=== PATIENT | female | born 1945 | race Caucasian/White ===

== ENCOUNTER 2018-03-15 03:35 | Inpatient (IN) | payer MEDICARE ==
[~2018-03-15] VITALS: Ht 152.4 cm; Wt 76.8 kg
--- NOTE | ~2018-03-15 | MORECARE ---
CASE MANAGEMENT DISCHARGE SUMMARY PATIENT: GIULIA NICHOLS UNIT: [id number] ADM DATE: 03/15/18 AGE: 72 : 44 SEX: F ROOM/BED: D.6413 AUTHOR: ABI GR PHYSICIAN: REFERRING PHYSICIAN: COURTNEY FOX MD DATE OF SERVICE: 03/19/18 Discharge Plan Patient Name: GIULIA NICHOLS Facility: [facility]:[place] : 1945 Planned Disposition: Home Anticipated Discharge Date: 03/19/18 Discharge Date: 03/19/2018 Expected LOS: 4 Initial Reviewer: [id number] Initial Review Date: 03/16/2018 Generated: 03/19/18 8:34 pm Comments DCP- Discharge Planning Updated by [id number]: Michael Marin on 03/16/18 3:[address] Patient Name: GIULIA NICHOLS Admission Status: ER Accout number: [id number] Admission Date: 03-15-2018 : 1945 Admission Diagnosis: Attending: COURTNEY FOX Current LOS: 1 Anticipated DC Date: Planned Disposition: Home Primary Insurance: MEDICARE A & B Discharge Planning Comments: CM SPOKE TO DR. FOX WHO INFORMED CM THAT PT AND SPOUSE ARE LOOKING FOR [employer] WORK IN HOSPITAL. CM MET WITH PT, SPOUSE AND DAUGHTER IN ROOM TO DISCUSS DISCHARGE PLANNING AND NEEDS. GIULIA NICHOLS provided verbal consent to discuss current and ongoing needs with/in the presence of: SPOUSE AND DAUGHTER (VEDA). PT REPORTS LIVING AT HOME DEPENDENTLY WITH SPOUSE WHO ASSISTS PT WITH BATHING AND MEDICATIONS. PT HAS ROLLATOR WALKER, BEDSIDE COMMODE, SHOWER CHAIR FROM [facility]. PT DID HAVE OXYGEN BUT IT WAS PICKED UP THREE WEEKS AGO AFTER DOCTOR VISIT INDICATED PT NO LONGER QUALIFIED FOR HOME OXYGEN. PT H NO OUTSIDE SERVICES ASSISTING IN THE HOME. PT'S DUAGHTER REPORTS BEING AVAILBLE TO PT TO ASSIST IN THE HOME NEEDED. CM DISCUSSED AVAILABILITY OF HOME HEALTH, REHAB SERVICES AND MEDICAL EQUIPMENT. PT DENIES DISCHARGE NEEDS, PT'S SPOUSE REPORTS THEY WERE EVALUATED BY HOME HEALTH AND PT IS NOT HOME BOUND AND NOT HAVING TAXING EFFORT TO LEAVE THE HOME. PT REPORTS HER DAUGHTER OR SPOUSE WILL PICK HER UP FOR DISCHARGE HOME. PT'S SPOUSE HAS TALKED TO [employer] WHO WILL PROVIDE A NOTARY WHEN HE CALLS THEM. PT AND SPOUSE DENY NEEDS AT THIS TIME. PT PLANS TO DISCHARGE HOME WITH SPOUSE, DENIES NEEDS AT THIS TIME. CM TO FOLLOW AND ASSIST NEEDED. Cosmetologist Apprentice: Michael Marin DCPIA - Discharge Planning Initial Assessment Updated by [id number]: Michael Marin on 03/16/18 4:40 pm * Is the patient Alert and Oriented? Yes * How many steps to enter\exit or inside your home? * PCP DR. CONRADO JOHNSON IN [place] * Pharmacy [address] IN [place] * Preadmission Environment Home with Family * ADLs Partial Dependent * Partial ADLs (Assistance needed) Bathing Medication Management * Equipment Bedside Commode Other Shower Chair * Other Equipment NO MEDICAL EQUIPMENT PROVIDER PREFERENCE * List name and contact numbers for known caregivers / representatives who currently or will assist patient after discharge: VEDA JACOB, DAUGHTER, * Verbal permission to speak to the caregivers and representatives has been obtained from the patient. Yes * Community resources currently utilized None * Please name any agencies selected above. NONE * Additional services required to return to the preadmission environment? No * Can the patient safely return to the preadmission environment? Yes * Has this patient been hospitalized within the prior 30 days at any hospital? No Coverage Notice Reviewer: [id number] Piter Cat Notice Issued Date-Time: 03/19/2018 15:45 Notice Type: IM Discharge Notice Notice Delivered To: Patient Relationship to Patient: Lead Assembler Name: Delivery Method: - Tyesha Days: Prior Verbal Notification: Recipient Understood Notice: Recipient Signature: Med Rec Note Co-signed by Attending: Coverage Notice Comment: Last DP export: 03/16/18 3:46 p Patient Name: GIULIA NICHOLS Page [id number] at 1934 All edits/amendments must be made on the electronic document DICTATION DATE: 03/19/181933 TREAD BUILDER: SNEHA 03/19/181933 RPT#: [id number] DC DATE:03/19/18 STATUS: DIS IN [facility] [address] [facility] [place] [address] END OF REPORT
--- NOTE | ~2018-03-15 | MORECARE ---
CASE MANAGEMENT DISCHARGE SUMMARY PATIENT: GIULIA NICHOLS UNIT: [id number] ADM DATE: 03/15/18 AGE: 72 : 44 SEX: F ROOM/BED: D.0538 AUTHOR: ABI GR PHYSICIAN: REFERRING PHYSICIAN: COURTNEY FOX MD DATE OF SERVICE: 03/16/18 Discharge Plan Patient Name: GIULIA NICHOLS Facility: [facility]:[place] : 1945 Planned Disposition: Home Anticipated Discharge Date: Discharge Date: Expected LOS: Initial Reviewer: [id number] Initial Review Date: 03/16/2018 Generated: 03/16/18 5:46 pm Comments DCP- Discharge Planning Updated by [id number]: Michael Marin on 03/16/18 3:[address] Patient Name: GIULIA NICHOLS Admission Status: ER Accout number: [id number] Admission Date: 03-15-2018 : 1945 Admission Diagnosis: Attending: COURTNEY FOX Current LOS: 1 Anticipated DC Date: Planned Disposition: Home Primary Insurance: MEDICARE A & B Discharge Planning Comments: CM SPOKE TO DR. FOX WHO INFORMED CM THAT PT AND SPOUSE ARE LOOKING FOR [employer] WORK IN HOSPITAL. CM MET WITH PT, SPOUSE AND DAUGHTER IN ROOM TO DISCUSS DISCHARGE PLANNING AND NEEDS. GIULIA NICHOLS provided verbal consent to discuss current and ongoing needs with/in the presence of: SPOUSE AND DAUGHTER (VEDA). PT REPORTS LIVING AT HOME DEPENDENTLY WITH SPOUSE WHO ASSISTS PT WITH BATHING AND MEDICATIONS. PT HAS ROLLATOR WALKER, BEDSIDE COMMODE, SHOWER CHAIR FROM [facility]. PT DID HAVE OXYGEN BUT IT WAS PICKED UP THREE WEEKS AGO AFTER DOCTOR VISIT INDICATED PT NO LONGER QUALIFIED FOR HOME OXYGEN. PT H NO OUTSIDE SERVICES ASSISTING IN THE HOME. PT'S DUAGHTER REPORTS BEING AVAILBLE TO PT TO ASSIST IN THE HOME NEEDED. CM DISCUSSED AVAILABILITY OF HOME HEALTH, REHAB SERVICES AND MEDICAL EQUIPMENT. PT DENIES DISCHARGE NEEDS, PT'S SPOUSE REPORTS THEY WERE EVALUATED BY HOME HEALTH AND PT IS NOT HOME BOUND AND NOT HAVING TAXING EFFORT TO LEAVE THE HOME. PT REPORTS HER DAUGHTER OR SPOUSE WILL PICK HER UP FOR DISCHARGE HOME. PT'S SPOUSE HAS TALKED TO [employer] WHO WILL PROVIDE A NOTARY WHEN HE CALLS THEM. PT AND SPOUSE DENY NEEDS AT THIS TIME. PT PLANS TO DISCHARGE HOME WITH SPOUSE, DENIES NEEDS AT THIS TIME. CM TO FOLLOW AND ASSIST NEEDED. Customer Care Agent: Michael Marin DCPIA - Discharge Planning Initial Assessment Updated by [id number]: Michael Marin on 03/16/18 4:40 pm * Is the patient Alert and Oriented? Yes * How many steps to enter\exit or inside your home? * PCP DR. CONRADO JOHNSON IN [place] * Pharmacy [facility] [address] IN [place] * Preadmission Environment Home with Family * ADLs Partial Dependent * Partial ADLs (Assistance needed) Bathing Medication Management * Equipment Bedside Commode Other Shower Chair * Other Equipment NO MEDICAL EQUIPMENT PROVIDER PREFERENCE * List name and contact numbers for known caregivers / representatives who currently or will assist patient after discharge: VEDA JACOB, DAUGHTER, * Verbal permission to speak to the caregivers and representatives has been obtained from the patient. Yes * Community resources currently utilized None * Please name any agencies selected above. NONE * Additional services required to return to the preadmission environment? No * Can the patient safely return to the preadmission environment? Yes * Has this patient been hospitalized within the prior 30 days at any hospital? No Patient Name: GIULIA NICHOLS Page [id number] at 1646 All edits/amendments must be made on the electronic document DICTATION DATE: 03/16/181645 LICENSED NURSE PRACTITIONER: SNEHA 03/16/181645 RPT#: [id number] [place] DATE: STATUS: ADM IN [facility] [address] [place] [address] END OF REPORT
--- NOTE | ~2018-03-15 | MORECARE ---
CASE MANAGEMENT DISCHARGE SUMMARY PATIENT: GIULIA NICHOLS UNIT: [id number] ADM DATE: 03/15/18 AGE: 72 : 44 SEX: F ROOM/BED: D.7775 AUTHOR: MAILE,DOC PHYSICIAN: REFERRING PHYSICIAN: COURTNEY FOX MD DATE OF SERVICE: 03/19/18 Discharge Plan Patient Name: GIULIA NICHOLS Facility: [facility]:[place] : 1945 Planned Disposition: Home Anticipated Discharge Date: 03/19/18 Discharge Date: 03/19/2018 Expected LOS: 4 Initial Reviewer: [id number] Initial Review Date: 03/16/2018 Generated: 03/19/18 8:41 pm Comments DCP- Discharge Planning Updated by [id number]: Lor Cat on 03/19/18 6:[address] LATE ENTRY 1525 PATIENT ANXIOUS FOR DISCHARGE. SPOUSE WAS AT THE BEDSIDE. HE IS PROVIDING TRANSPORTATION. HE LEFT TO GO GET THE CAR. CM DISCUSSED DISCHARGE IMM WITH THE PATIENT. PATIENT HAD NO QUESTIONS. OR CONCERNS. DENIED ANY NEEDS. DISCHARGE TO HOME W/ SPOUSE. DCP- Discharge Planning Updated by [id number]: Michael Marin on 03/16/18 3:[address] Patient Name: GIULIA NICHOLS Admission Status: ER Accout number: [id number] Admission Date: 03-15-2018 : 1945 Admission Diagnosis: Attending: COURTNEY FOX Current LOS: 1 Anticipated DC Date: Planned Disposition: Home Primary Insurance: MEDICARE A & B Discharge Planning Comments: CM SPOKE TO DR. FOX WHO INFORMED CM THAT PT AND SPOUSE ARE LOOKING FOR [employer] WORK IN HOSPITAL. CM MET WITH PT, SPOUSE AND DAUGHTER IN ROOM TO DISCUSS DISCHARGE PLANNING AND NEEDS. GIULIA NICHOLS provided verbal consent to discuss current and ongoing needs with/in the presence of: SPOUSE AND DAUGHTER (VEDA). PT REPORTS LIVING AT HOME DEPENDENTLY WITH SPOUSE WHO ASSISTS PT WITH BATHING AND MEDICATIONS. PT HAS ROLLATOR WALKER, BEDSIDE COMMODE, SHOWER CHAIR FROM [facility]. PT DID HAVE OXYGEN BUT IT WAS PICKED UP THREE WEEKS AGO AFTER DOCTOR VISIT INDICATED PT NO LONGER QUALIFIED FOR HOME OXYGEN. PT H NO OUTSIDE SERVICES ASSISTING IN THE HOME. PT'S DAVID REPORTS BEING AVAILBLE TO PT TO ASSIST IN THE HOME NEEDED. CM DISCUSSED AVAILABILITY OF HOME HEALTH, REHAB SERVICES AND MEDICAL EQUIPMENT. PT DENIES DISCHARGE NEEDS, PT'S SPOUSE REPORTS THEY WERE EVALUATED BY HOME HEALTH AND PT IS NOT HOME BOUND AND NOT HAVING TAXING EFFORT TO LEAVE THE HOME. PT REPORTS HER DAUGHTER OR SPOUSE WILL PICK HER UP FOR DISCHARGE HOME. PT'S SPOUSE HAS TALKED TO [employer] WHO WILL PROVIDE A NOTARY WHEN HE CALLS THEM. PT AND SPOUSE DENY NEEDS AT THIS TIME. PT PLANS TO DISCHARGE HOME WITH SPOUSE, DENIES NEEDS AT THIS TIME. CM TO FOLLOW AND ASSIST NEEDED. Greenstone Polisher Operator: Michael Marin DCPIA - Discharge Planning Initial Assessment Updated by [email or web address]: Michael Marin on 03/16/18 4:40 pm * Is the patient Alert and Oriented? Yes * How many steps to enter\exit or inside your home? * PCP DR. CONRADO JOHNSON IN [place] * Pharmacy [address] IN [place] * Preadmission Environment Home with Family * ADLs Partial Dependent * Partial ADLs (Assistance needed) Bathing Medication Management * Equipment Bedside Commode Other Shower Chair * Other Equipment NO MEDICAL EQUIPMENT PROVIDER PREFERENCE * List name and contact numbers for known caregivers / representatives who currently or will assist patient after discharge: VEDA JACOB, DAUGHTER, * Verbal permission to speak to the caregivers and representatives has been obtained from the patient. Yes * Community resources currently utilized None * Please name any agencies selected above. NONE * Additional services required to return to the preadmission environment? No * Can the patient safely return to the preadmission environment? Yes * Has this patient been hospitalized within the prior 30 days at any hospital? No Coverage Notice Reviewer: [id number] Piter Cat Notice Issued Date-Time: 03/19/2018 15:45 Notice Type: IM Discharge Notice Notice Delivered To: Patient Relationship to Patient: Water Plumber Name: Delivery Method: HAND - Hand Delivered Tyesha Days: Prior Verbal Notification: Recipient Understood Notice: Yes Recipient Signature: Yes Med Rec Note Co-signed by Attending: Coverage Notice Comment: CM SPOKE WITH THE PATIENT. EXPLAINED DISCHARGE IMM. NO QUESTIONS OR CONCERNS. SIGNATURE OBTAINED. COPY TO THE PATIENT AND COPY TO THE HARD COPY CHART. Last DP export: 03/19/18 6:34 Patient Name: GIULIA NICHOLS Page [phone] at 1941 All edits/amendments must be made on the electronic document DICTATION DATE: 03/19/181940 ROSE GROWER: SNEHA 03/19/181940 RPT#: [id number] DC DATE:03/19/18 STATUS: DIS IN [facility] [address] [place] [address] END OF REPORT
--- NOTE | ~2018-03-15 | MORECARE ---
CASE MANAGEMENT DISCHARGE SUMMARY PATIENT: GIULIA NICHOLS UNIT: [id number] ADM DATE: 03/15/18 AGE: 72 : 44 SEX: F ROOM/BED: D.0527 AUTHOR: MAILE,ABI PHYSICIAN: REFERRING PHYSICIAN: COURTNEY FOX MD DATE OF SERVICE: 03/20/18 Discharge Plan Patient Name: GIULIA NICHOLS Facility: [facility]:[place] : 1945 Planned Disposition: Home Anticipated Discharge Date: 03/19/18 Discharge Date: 03/19/2018 Expected LOS: 4 Initial Reviewer: [id number] Initial Review Date: 03/16/2018 Generated: 03/20/18 10:36 am Comments DCP- Discharge Planning Updated by [id number]: Lor Cat on 03/19/18 6:[address] LATE ENTRY 1525 PATIENT ANXIOUS FOR DISCHARGE. SPOUSE WAS AT THE BEDSIDE. HE IS PROVIDING TRANSPORTATION. HE LEFT TO GO GET THE CAR. CM DISCUSSED DISCHARGE IMM WITH THE PATIENT. PATIENT HAD NO QUESTIONS. OR CONCERNS. DENIED ANY NEEDS. DISCHARGE TO HOME W/ SPOUSE. DCP- Discharge Planning Updated by [id number]: Michael Marin on 03/16/18 3:[address] Patient Name: GIULIA NICHOLS Admission Status: ER Accout number: [id number] Admission Date: 03-15-2018 : 1945 Admission Diagnosis: Attending: COURTNEY FOX Current LOS: 1 Anticipated DC Date: Planned Disposition: Home Primary Insurance: MEDICARE A & B Discharge Planning Comments: CM SPOKE TO DR. FOX WHO INFORMED CM THAT PT AND SPOUSE ARE LOOKING FOR [facility] WORK IN HOSPITAL. CM MET WITH PT, SPOUSE AND DAUGHTER IN ROOM TO DISCUSS DISCHARGE PLANNING AND NEEDS. GIULIA NICHOLS provided verbal consent to discuss current and ongoing needs with/in the presence of: SPOUSE AND DAUGHTER (VEDA). PT REPORTS LIVING AT HOME DEPENDENTLY WITH SPOUSE WHO ASSISTS PT WITH BATHING AND MEDICATIONS. PT HAS ROLLATOR WALKER, BEDSIDE COMMODE, SHOWER CHAIR FROM [facility] [place]. PT DID HAVE OXYGEN BUT IT WAS PICKED UP THREE WEEKS AGO AFTER DOCTOR VISIT INDICATED PT NO LONGER QUALIFIED FOR HOME OXYGEN. PT H NO OUTSIDE SERVICES ASSISTING IN THE HOME. PT'S DAVID REPORTS BEING AVAILBLE TO PT TO ASSIST IN THE HOME NEEDED. CM DISCUSSED AVAILABILITY OF HOME HEALTH, REHAB SERVICES AND MEDICAL EQUIPMENT. PT DENIES DISCHARGE NEEDS, PT'S SPOUSE REPORTS THEY WERE EVALUATED BY HOME HEALTH AND PT IS NOT HOME BOUND AND NOT HAVING TAXING EFFORT TO LEAVE THE HOME. PT REPORTS HER DAUGHTER OR SPOUSE WILL PICK HER UP FOR DISCHARGE HOME. PT'S SPOUSE HAS TALKED TO [employer] WHO WILL PROVIDE A NOTARY WHEN HE CALLS THEM. PT AND SPOUSE DENY NEEDS AT THIS TIME. PT PLANS TO DISCHARGE HOME WITH SPOUSE, DENIES NEEDS AT THIS TIME. CM TO FOLLOW AND ASSIST NEEDED. Air And Missile Defense Crewmember: Michael Marin DCPIA - Discharge Planning Initial Assessment Updated by [id number]: Michael Marin on 03/16/18 4:40 pm * Is the patient Alert and Oriented? Yes * How many steps to enter\exit or inside your home? * PCP DR. CONRADO JOHNSON IN [place] * Pharmacy [address] IN [place] * Preadmission Environment Home with Family * ADLs Partial Dependent * Partial ADLs (Assistance needed) Bathing Medication Management * Equipment Bedside Commode Other Shower Chair * Other Equipment NO MEDICAL EQUIPMENT PROVIDER PREFERENCE * List name and contact numbers for known caregivers / representatives who currently or will assist patient after discharge: VEDA JACOB, DAUGHTER, * Verbal permission to speak to the caregivers and representatives has been obtained from the patient. Yes * Community resources currently utilized None * Please name any agencies selected above. NONE * Additional services required to return to the preadmission environment? No * Can the patient safely return to the preadmission environment? Yes * Has this patient been hospitalized within the prior 30 days at any hospital? No Coverage Notice Reviewer: [id number] Piter Cat Notice Issued Date-Time: 03/19/2018 15:45 Notice Type: IM Discharge Notice Notice Delivered To: Patient Relationship to Patient: Spanish Interpreter/Translator Name: Delivery Method: HAND - Hand Delivered Tyesha Days: Prior Verbal Notification: Recipient Understood Notice: Yes Recipient Signature: Yes Med Rec Note Co-signed by Attending: Coverage Notice Comment: CM SPOKE WITH THE PATIENT. EXPLAINED DISCHARGE IMM. NO QUESTIONS OR CONCERNS. SIGNATURE OBTAINED. COPY TO THE PATIENT AND COPY TO THE HARD COPY CHART. Last DP export: 03/19/18 6:41 Patient Name: GIULIA NICHOLS Page [id number] at 0936 All edits/amendments must be made on the electronic document DICTATION DATE: 03/20/18935 STRUCTURAL STEEL WORKER HELPER: SNEHA 03/20/18935 RPT#: [id number] DC DATE:03/19/18 STATUS: DIS IN [facility] [address] [place] [address] END OF REPORT
[2018-03-15 04:26] VITALS: BP 132/71
[2018-03-15] MEDS ORDERED: XANAX0.25 MG PO (04:48)
[2018-03-15] MEDS ORDERED: COREG6.25 MG PO (04:49)
[2018-03-15] MEDS ORDERED: PHOSLO667 MG PO (04:49)
[2018-03-15] MEDS ORDERED: TESSALON PERLE100 MG PO (04:49)
[2018-03-15] MEDS ORDERED: FERROUS SULFAT325 MG PO (04:50)
[2018-03-15] MEDS ORDERED: COLACE100 MG PO (04:50)
[2018-03-15] MEDS ORDERED: GABAPENTIN100 MG PO (04:51)
[2018-03-15] MEDS ORDERED: LASIX80 MG PO (04:51)
[2018-03-15] MEDS ORDERED: PROTONIX40 MG PO (04:52)
[2018-03-15] MEDS ORDERED: PRAVACHOL80 MG PO (04:52)
[2018-03-15] MEDS ORDERED: MELATONIN5 MG PO (04:52)
[2018-03-15] MEDS ORDERED: VITAMIN B-121000 MCG PO (04:52)
[2018-03-15] MEDS ORDERED: VITAMIN D31000 UNIT PO (04:53)
[2018-03-15] MEDS ORDERED: HYDRALAZINE HCL50 MG PO (04:54)
[2018-03-15] MEDS ORDERED: NORVASC10 MG PO (04:54)
[2018-03-15] MEDS ORDERED: TRAZODONE HCL100 MG PO (04:54)
[2018-03-15 05:13] VITALS: BP 151/83
[2018-03-15 09:50] VITALS: BP 172/76
[2018-03-15 11:20] LABS: HEMATOCRIT 40.6 % (36.0-48.0); HEMOGLOBIN 13.2 g/dL (12-16); MCH 29.9 pg (26.0-34.0); MCHC 32.5 g/dL (31.0-37.0); MCV 92.1 fL (80.0-100.0); MEAN PLATELET VOLUME 10.3 fL (7.4-10.4); PLATELET COUNT 245 10x3/uL (130-400); RBC 4.41 10x6/uL (4.00-5.40); RDW 14.3 % (11.5-14.5); WBC 13.4 10x3/uL (4.8-10.8)
[2018-03-15 11:29] LABS: APTT 32.5 SECONDS (22.8-39.4); INR 1.09 (0.85-1.17); PROTIME 13.7 SECONDS (11.6-15.0)
[2018-03-15 11:30] LABS: D-DIMER-QUANTITATIVE 0.7 ug/mLFEU (0.20-0.54)
[2018-03-15 11:40] LABS: ALBUMIN 3.1 g/dL (3.4-5.0); ANION GAP 13.1 mmol/L (8-16); BILIRUBIN - TOTAL 0.25 mg/dL (0.2-1.3); CARBON DIOXIDE 28.1 mmol/L (21.0-32.0); CREATININE - SERUM 5.4 mg/dL (0.6-1.3); MAGNESIUM - SERUM 2.6 mg/dL (1.8-2.4); POTASSIUM - SERUM 3.2 mmol/L (3.5-5.1); T4 THYROXIN - FREE 1.21 ng/dL (0.76-1.46); THYROID STIMULATING HORMONE 1.85 uIU/mL (0.36-3.74)
[2018-03-15 11:44] LABS: CALCIUM 12.3 mg/dL (8.5-10.1)
[2018-03-15 12:29] LABS: EOSINOPHILS 7 % (0-7); LYMPHOCYTES 11 % (15-50); MONOCYTES 9 % (2-11); NEUTROPHILS 71 % (40-80); PLATELET ESTIMATE NORMAL
[2018-03-15 14:17] VITALS: BP 121/61; BMI 33.0
[2018-03-15 15:34] VITALS: BP 147/54
[2018-03-15 20:33] VITALS: BP 105/48
[2018-03-16 00:34] VITALS: BP 113/38
[2018-03-16 06:11] LABS: ANION GAP 17.1 mmol/L (8-16); CALCIUM 11.2 mg/dL (8.5-10.1); CARBON DIOXIDE 25.2 mmol/L (21.0-32.0); CREATININE - SERUM 5.4 mg/dL (0.6-1.3); POTASSIUM - SERUM 3.3 mmol/L (3.5-5.1)
[2018-03-16 06:14] VITALS: BP 128/73
[2018-03-16 06:54] LABS: BASOPHILS 0.3 % (0-2); EOSINOPHILS 7.9 % (0-7); HEMATOCRIT 39.1 % (36.0-48.0); HEMOGLOBIN 12.7 g/dL (12-16); IMMATURE GRANULOCYTES 0.6 % (0-5); MCH 29.7 pg (26.0-34.0); MCHC 32.5 g/dL (31.0-37.0); MCV 91.6 fL (80.0-100.0); MEAN PLATELET VOLUME 10.5 fL (7.4-10.4); NEUTROPHILS 66.2 % (40-80); PLATELET COUNT 201 10x3/uL (130-400); RBC 4.27 10x6/uL (4.00-5.40); RDW 14.2 % (11.5-14.5); WBC 13.2 10x3/uL (4.8-10.8)
[2018-03-16 07:49] VITALS: BP 147/60
[2018-03-16 11:33] VITALS: BP 158/65
[2018-03-16 13:18] VITALS: Ht 152.4 cm; Wt 76.8 kg
[2018-03-16 15:57] VITALS: BP 155/67
[2018-03-16 19:00] VITALS: BP 140/54
[2018-03-17 02:11] VITALS: BP 147/56
[2018-03-17 04:00] VITALS: BP 141/43
[2018-03-17 06:29] LABS: CALCIUM 9.7 mg/dL (8.5-10.1); CARBON DIOXIDE 25.4 mmol/L (21.0-32.0); CREATININE - SERUM 4.9 mg/dL (0.6-1.3); POTASSIUM - SERUM 3.4 mmol/L (3.5-5.1)
[2018-03-17 07:12] LABS: BASOPHILS 0.2 % (0-2); EOSINOPHILS 8.2 % (0-7); HEMATOCRIT 36.8 % (36.0-48.0); HEMOGLOBIN 11.7 g/dL (12-16); IMMATURE GRANULOCYTES 0.6 % (0-5); LYMPHOCYTES 10.3 % (15-50); MCH 29.2 pg (26.0-34.0); MCHC 31.8 g/dL (31.0-37.0); MCV 91.8 fL (80.0-100.0); MEAN PLATELET VOLUME 10.1 fL (7.4-10.4); NEUTROPHILS 71.7 % (40-80); PLATELET COUNT 209 10x3/uL (130-400); RBC 4.01 10x6/uL (4.00-5.40); RDW 14.3 % (11.5-14.5)
[2018-03-17 07:13] LABS: WBC 17.2 10x3/uL (4.8-10.8)
[2018-03-17 08:55] LABS: APPEARANCE CLEAR (CLEAR); BILIRUBIN NEGATIVE (NEGATIVE); COLOR YELLOW (YELLOW); GLUCOSE 500 mg/dL (NEGATIVE); KETONE NEGATIVE (NEGATIVE); NITRITE NEGATIVE (NEGATIVE); PROTEIN 3+ mg/dL (NEGATIVE); SPECIFIC GRAVITY 1.015 (1.005-1.020); UROBILINOGEN NORMAL (NORMAL)
[2018-03-17 08:56] LABS: EPITHELIAL CELLS 0-5 /hpf (0-5); RED CELLS - URINE NONE SEEN /hpf (0-5); WHITE CELLS - URINE 0-5 /hpf (0-5)
[2018-03-17 09:00] VITALS: BP 162/70
[2018-03-17 13:29] VITALS: BP 170/74
[2018-03-17 16:06] VITALS: BP 164/68
[2018-03-17 20:00] VITALS: BP 170/70
[2018-03-18 00:10] VITALS: BP 142/61
[2018-03-18 04:00] VITALS: BP 110/59
[2018-03-18 06:10] LABS: BASOPHILS 0.1 % (0-2); EOSINOPHILS 0 % (0-7); HEMOGLOBIN 11.8 g/dL (12-16); IMMATURE GRANULOCYTES 0.9 % (0-5); LYMPHOCYTES 6.6 % (15-50); MCH 29.4 pg (26.0-34.0); MCHC 31.9 g/dL (31.0-37.0); MCV 92.3 fL (80.0-100.0); MEAN PLATELET VOLUME 10.5 fL (7.4-10.4); MONOCYTES 0.9 % (2-11); NEUTROPHILS 91.5 % (40-80); PLATELET COUNT 220 10x3/uL (130-400); RBC 4.01 10x6/uL (4.00-5.40); RDW 14.3 % (11.5-14.5); WBC 13.9 10x3/uL (4.8-10.8)
[2018-03-18 06:30] LABS: ANION GAP 17.4 mmol/L (8-16); CALCIUM 8.5 mg/dL (8.5-10.1); CARBON DIOXIDE 23.1 mmol/L (21.0-32.0); CREATININE - SERUM 4.6 mg/dL (0.6-1.3)
[2018-03-18 06:35] LABS: POTASSIUM - SERUM 4.5 mmol/L (3.5-5.1)
[2018-03-18 08:53] VITALS: BP 173/82
[2018-03-18 12:10] VITALS: BP 149/50
[2018-03-18 15:38] VITALS: BP 162/79
[2018-03-18 20:30] VITALS: BP 172/72
[2018-03-19 00:30] VITALS: BP 151/59
[2018-03-19 04:30] VITALS: BP 174/77
[2018-03-19 05:53] LABS: CALCIUM 8.3 mg/dL (8.5-10.1); CARBON DIOXIDE 21.8 mmol/L (21.0-32.0); CREATININE - SERUM 4.5 mg/dL (0.6-1.3)
[2018-03-19 05:55] LABS: POTASSIUM - SERUM 3.8 mmol/L (3.5-5.1)
[2018-03-19 06:17] LABS: HEMATOCRIT 32.3 % (36.0-48.0); HEMOGLOBIN 10.5 g/dL (12-16); MCH 29.5 pg (26.0-34.0); MCHC 32.5 g/dL (31.0-37.0); MCV 90.7 fL (80.0-100.0); MEAN PLATELET VOLUME 10.3 fL (7.4-10.4); PLATELET COUNT 223 10x3/uL (130-400); RBC 3.56 10x6/uL (4.00-5.40); RDW 14.6 % (11.5-14.5); WBC 21.3 10x3/uL (4.8-10.8)
[2018-03-19 07:35] LABS: LYMPHOCYTES 10 % (15-50); MONOCYTES 3 % (2-11); NEUTROPHILS 87 % (40-80); PLATELET ESTIMATE NORMAL
[2018-03-19 07:59] VITALS: BP 166/76
[2018-03-19] MEDS ORDERED: LEVOFLOXACIN500 MG PO (10:56)
[2018-03-19] MEDS ORDERED: PREDNISONE10 MG PO (10:57)
[2018-03-19] MEDS ORDERED: PROTONIX40 MG PO (10:58)
== END 2018-03-19 16:03 | disposition home or self-care (01) | DRG 682 ==
LOC: D.ER 03:35 → D.M2 05:02 → D.EDHOLD 05:02 → D.M2 13:17
PROVIDERS: Internal Medicine Nephrology
DX: N17.9 Acute kidney failure, unspecified (principal); G92 Toxic encephalopathy; I50.31 Acute diastolic (congestive) heart failure; I13.0 Hypertensive heart and chronic kidney disease with heart failure and stage 1 through stage 4 chronic kidney disease, or unspecified chronic kidney disease; N39.0 Urinary tract infection, site not specified; N18.4 Chronic kidney disease, stage 4 (severe); I48.0 Paroxysmal atrial fibrillation; E11.22 Type 2 diabetes mellitus with diabetic chronic kidney disease; E78.5 Hyperlipidemia, unspecified; E83.52 Hypercalcemia; B96.1 Klebsiella pneumoniae [K. pneumoniae] as the cause of diseases classified elsewhere